=== PATIENT | female | born 1955 | race Caucasian/White ===

== ENCOUNTER 2021-03-25 07:10 | Emergency (ER) | payer MEDICARE ==
[~2021-03-25 07:10] MED LIST: COUMADIN7.5 MG PO; DIGOXIN250 MCG PO; LASIX20 MG PO; LISINOPRIL 10MG10 MG PO; NORETHINDRONE AC5 MG PO; UROCIT-K10 MEQ PO; VENTOLIN HFA18 GM INH; VERAPAMIL ER240 MG PO
[2021-03-25 08:20] LABS: EOSINOPHIL 2.7 % (0-7); HCT 44.2 % (37.0-47.0); HGB 14.9 g/dl (12.5-16.0); LYMPHOCYTE 18.1 % (15-48); MCH 33.6 pg (25.0-31.0); MCHC 33.7 g/dL (32.0-36.0); MCV 99.8 fL (78.0-100.0); MONOCYTE 8.8 % (0-12); MPV 10.1 fL (6.0-9.5); NEUTROPHIL 69.1 % (41-80); NRBC 0; PLT 195 K/uL (150-400); RBC 4.43 M/uL (4.20-5.40); RDW 12.9 % (11.5-14.0); WBC 7.1 K/uL (4.0-10.5)
[2021-03-25 08:33] LABS: INR 1.82 (0.9-1.2); PROTHROMBIN TIME 20.3 SECONDS (11.8-13.4); PTT 39.5 SECONDS (24.4-34.7)
== END 2021-03-25 10:21 | disposition home or self-care (01) ==
LOC: FER 07:10
PROVIDERS: Internal Medicine
DX: R51.9 Headache, unspecified (principal); M25.562 Pain in left knee; M79.601 Pain in right arm; I48.91 Unspecified atrial fibrillation; I10 Essential (primary) hypertension; Z79.01 Long term (current) use of anticoagulants; W18.2XXA Fall in (into) shower or empty bathtub, initial encounter
CPT/HCPCS: 36415; 70450; 70551; 85025; 85610; 85730